=== PATIENT | female | born 1980 | race Caucasian/White ===

== ENCOUNTER 2016-05-04 09:18 | Emergency (ER) | payer OTHER ==
[2016-05-04 09:23] VITALS: BP 131/97
--- NOTE | 2016-05-14 19:37 | ED ---
Complex/Multi-Sys Presentation - HPI Summary HPI Summary: Pt here w/ flu-like sx x 6 days[address] as ST - then otalgia, fatigue, body aches, vomiting (few times only) - now cough, rhinirrhea/ears plugged, nasal congestion. Sick contacts are other family members w/ similar sx. She has not tried much to alleviate sx. - History Of Current Complaint Chief Complaint: EDGeneral Time Seen by Provider: 05/04/16 11:01 Hx Obtained From: Patient - Allergies/Home Medications Allergies/Adverse Reactions: Allergies Allergy/AdvReac Type Severity Reaction Status Date / Time Levofloxacin [From Levaquin] Allergy Rash Verified 05/04/16 09:23 PMH/Surg Hx/FS Hx/Imm Hx Previously Healthy: Yes Endocrine/Hematology History: Denies: Autoimmune Disease Respiratory History: Denies: Hx Asthma, Hx Chronic Bronchitis, Hx Pneumonia - Surgical History Surgery Procedure, Year, and Place: ; tubal ligation; sinus surgery Infectious Disease History: No Infectious Disease History: Denies: Hx Clostridium Difficile, Hx Hepatitis, Hx Human Immunodeficiency Virus (HIV), Hx of Known/Suspected MRSA, Hx Shingles, Hx Tuberculosis, Hx Known/ Suspected VRE, Hx Known/Suspected VRSA, History Other Infectious Disease, Traveled Outside the [place] in Last 30 Days - Family History Known Family History: Positive: None - Social History Occupation: Employed Full-time Lives: With Family Alcohol Use: Rare Hx Substance Use: No Substance Use Type: Reports: None Smoking Status (MU): Current Every Day Smoker Amount Used/How Often: 1 ppd Review of Systems Positive: Fatigue. Negative: Fever, Chills Negative: Drainage, Erythema ENT: Other - see HPI Negative: Chest Pain Positive: Cough - see HPI. Negative: Shortness Of Breath Negative: Abdominal Pain, Vomiting - see HPI, Diarrhea, Nausea Positive: no symptoms reported Musculoskeletal: Other - see HPI Negative: Rash Negative: Headache Psychological: Normal All Other Systems Reviewed And Are Negative: Yes Physical Exam Triage Information Reviewed: Yes Vital Signs On Initial Exam: Initial Vitals Temp Pulse Resp BP Pulse Ox 98.0 F 92 16 131/97 100 05/04/16 09:19 05/04/16 09:19 05/04/16 09:19 05/04/16 09:19 05/04/16 09:19 Vital Signs Reviewed: Yes Appearance: Positive: Well-Appearing - appears mildly fatigued, No Pain Distress , Well-Nourished Skin: Positive: Warm, Dry - no rash Head/Face: Positive: Normal Head/Face Inspection - sinuses NTTP Eyes: Positive: Normal, EOMI. Negative: Conjunctiva Clear, Conjunctiva Inflammed, Discharge ENT: Positive: Hearing grossly normal, Pharyngeal erythema - cobblestoning w/ mild erythema, Nasal congestion - edema w/o purulent drainage and mild erythema , Nasal drainage - clear, TMs normal. Negative: TM bulging, TM dull, TM red, Tonsillar swelling, Tonsillar exudate Neck: Positive: Supple, Nontender, No Lymphadenopathy Respiratory/Lung Sounds: Positive: Clear to Auscultation, Breath Sounds Present. Negative: Rales, Rhonchi, Wheezes Cardiovascular: Positive: Normal, RRR Abdomen Description: Positive: Nontender, No Organomegaly, Soft Bowel Sounds: Positive: Present Musculoskeletal: Positive: Normal, Strength/ROM Intact - no neck pain Neurological: Positive: Normal, Sensory/Motor Intact, Alert, Oriented to Person Place, Time, CN Intact II-III Psychiatric: Positive: Normal Diagnostics - Vital Signs Vital Signs Temp Pulse Resp BP Pulse Ox 05/04/16 11:54 97.6 F 74 18 05/04/16 09:19 98.0 F 92 16 131/97 100 - Laboratory Lab Results: Lab Results 05/04/16 Range/Units 12:00 Influenza A (Rapid) Negative (Negative) Influenza B (Rapid) Negative (Negative) Lab Statement: Any lab studies that have been ordered have been reviewed, and results considered in the medical decision making process. Complex Multi-Symp Course/Dx - Diagnoses Provider Diagnoses: URI Discharge - Discharge Plan Condition: Stable Disposition: HOME Patient Education Materials: Upper Respiratory Infection (ED) Forms: *Work Release Referrals: Daphne Mahajan MD [Primary Care Provider] - Additional Instructions: You appear to have a viral URI. This does not require antibiotics - try conservative care methods to improve symptoms: Nasal wash (netti pot) & throat gargle 2 x day with 8 ounces of warm water + 1/ 4 teaspoon of salt Drink 60+ ounces of water daily Sleep 8+ hours per night Avoid Dairy and sugar Hot herbal/decaf tea with lemon & honey Chicken broth (preferably organic, free range chicken) Humidifier in house, but especially near bed at night Try a facial steam with or without eucalyptus essential oil Consider taking Vitamin D 1,000mg and Vitamin C 1,000mg every day during illness - discuss Vitamin D with PCP Follow-up with PCP next week if symptoms persist or worsen. If you have intractable fever, vomiting or neck pain, return to ED
== END 2016-05-04 11:54 | disposition home or self-care (01) ==
LOC: ED 09:18
DX: J06.9 Acute upper respiratory infection, unspecified (principal); F17.210 Nicotine dependence, cigarettes, uncomplicated
CPT/HCPCS: 87502; 99282